=== PATIENT | male | born 1985 | race African-American/Black ===

== ENCOUNTER 2020-04-25 13:39 | Emergency (ER) | payer MEDICAID, SELFPAY ==
[2020-04-25] MEDS ORDERED: Ketorolac Tromethamine 30 MG/ML VIAL ONE (14:30)
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
== END 2020-04-25 14:48 | disposition home or self-care (01) ==
LOC: ERS 13:39
DX: S39.012A Strain of muscle, fascia and tendon of lower back, initial encounter (principal); V89.2XXA Person injured in unspecified motor-vehicle accident, traffic, initial encounter
CPT/HCPCS: 96372; 99283; J1885

== ENCOUNTER 2020-04-28 12:51 | Emergency (ER) | payer SELFPAY | END 2020-04-28 14:07 | disposition home or self-care (01) | LOC: ERS 12:51 | DX: S39.012A Strain of muscle, fascia and tendon of lower back, initial encounter (principal); J45.909 Unspecified asthma, uncomplicated; X50.0XXA Overexertion from strenuous movement or load, initial encounter; V49.40XD Driver injured in collision with unspecified motor vehicles in traffic accident, subsequent encounter; Y99.0 Civilian activity done for income or pay | CPT/HCPCS: 72100; 99283 ==

== ENCOUNTER 2020-05-04 14:06 | Emergency (ER) | payer SELFPAY | END 2020-05-04 20:33 | disposition left against medical advice (07) | LOC: ERS 14:06 | DX: Z53.21 Procedure and treatment not carried out due to patient leaving prior to being seen by health care provider (principal) ==

== ENCOUNTER 2020-05-31 09:14 | Emergency (ER) | payer OTHER, SELFPAY ==
[2020-06-01 15:24] LABS: SARS-CoV-2 MS2 Positive; SARS-CoV-2 N Gene Negative; SARS-CoV-2 S Gene Negative; SARS-CoV-2 orf1ab Negative
== END 2020-05-31 09:55 | disposition home or self-care (01) ==
LOC: ERS 09:14
DX: Z20.828 Contact with and (suspected) exposure to other viral communicable diseases (principal)
CPT/HCPCS: 87635; 99283; U0003

== ENCOUNTER 2020-09-05 19:25 | Inpatient (IN) | payer OTHER, SELFPAY ==
[~2020-09-05 19:25] MED LIST: Iopamidol 370 76% 100 ML VIAL ONE
[2020-09-05] MEDS ORDERED: Ketorolac Tromethamine 30 MG/ML VIAL ONE (20:17)
--- NOTE | 2020-09-05 21:06 | ULT ---
Right lower extremity venous Doppler ultrasound 09/05/2020 COMPARISON: None HISTORY: Pain, swelling, assess for DVT TECHNIQUE: Multiplanar grayscale sonographic imaging venous structures right lower extremity obtained with color flow and spectral analysis FINDINGS: The right common femoral vein is expanded and filled with heterogeneous thrombus. There is extensive DVT within the femoral vein and the popliteal vein as well. Proximal aspect of the common femoral vein clot approaches the junction with the right iliac vein. IMPRESSION: Extensive deep venous thrombosis of the right lower extremity including the common femora l vein, femoral vein, and popliteal vein. Dr. Pacheco made aware via phone by Dr. Simeon at 9:03 PM
--- NOTE | 2020-09-05 22:18 | CT ---
CT angiogram chest: 09/05/2020 HISTORY: Right lower extremity DVT, evaluate for pulmonary embolism TECHNIQUE: Axial CT imaging at 2.5 mm intervals through the chest with IV contrast using CT angiogram protocol with coronal and oblique sagittal 3-D reformatted imaging FINDINGS: Partially imaged upper abdomen appears grossly unremarkable. No pleural, pericardial, or me diastinal fluid. No chest lymphadenopathy. There is a filling defect within the pulmonary artery supplying the left lower lobe, best seen on axi al image 53, extending into 3 segmental branches of the left lower lobe, best seen on axial image 58. There is a filling defect within the distal aspect of the lobar pulmonary arteries supplying the right upper lobe with extension into anterior and posterior right upper lobe segmental branches. There is a segmental pulmonary arterial embolism involving the right lower lobe on axial image 67. There is no pneumothorax seen. Mild linear density in the inferior posterior aspect of both lower lobe suggests atelectasis. No acut e osseous abnormality. IMPRESSION: Acute pulmonary arterial embolism bilaterally as detailed above area results called to Dr Bart Pacheco at 10:12 PM 09/05/2020
[2020-09-05 22:59] LABS: #Basophils 0.1 thou/uL (0.0-0.2); #Lymphocytes 1.3 thou/uL (1.20-3.40); #Monocytes 1.4 thou/uL (0.11-0.59); #Neutrophils 9.5 thou/uL (1.40-6.50); %Basophils 0.4 % (0.0-1.0); %Eosinophils 0.4 % (0.0-10.0); %Lymphocytes 10.6 % (21.0-51.0); %Monocytes 11.1 % (0.0-10.0); %Neutrophils 77.5 % (42.0-75.0); Hemoglobin 11.9 g/dL (14.0-18.0); Mean Corpuscular HGB CONC 32.4 g/dL (32.0-36.0); Mean Corpuscular Hemoglobin 23.7 pg (27.0-31.0); Mean Corpuscular Volume 73.2 fL (78.0-98.0); Mean Platelet Volume 11.5 fL (7.4-10.4); Platelet Count 166 thou/uL (130-400); RBC Distribution Width 12.1 % (11.5-14.5); Red Blood Cell (RBC) Count 5.01 mill/uL (4.70-6.10); White Blood Cell (WBC) Count 12.2 thou/uL (4.8-10.8)
[2020-09-05] MEDS ORDERED: Enoxaparin Sodium 100 MG/ML SYRINGE ONE (23:17)
[2020-09-05 23:24] LABS: ALT (SGPT) 11 U/L (8-55); AST (SGOT) 11 U/L (5-34); Albumin 4.1 g/dL (3.5-5.0); Alkaline Phosphatase 87 U/L (40-110); Anion Gap 15 mmol/L (10-20); BUN (Urea Nitrogen) 8 mg/dL (8.9-20.6); Bilirubin, Total 0.8 mg/dL (0.2-1.2); Calc. Creatinine Clearance 0 mL/min (70-130); Carbon Dioxide 24 mmol/L (22-29); Chloride 100 mmol/L (98-107); Estimated GFR-MDRD Greater than 90; Globulin 3.6 g/dL (2.4-3.5); Glucose 103 mg/dL (70-105); Potassium 3.8 mmol/L (3.5-5.1); Protein, Total 7.7 g/dL (6.0-8.3); Sodium 135 mmol/L (136-145)
[2020-09-05] MEDS ORDERED: Enoxaparin Sodium 60 MG/0.6 ML SYRINGE ONE (23:28)
--- NOTE | 2020-09-05 23:54 | PDOC.HHP ---
Hospitalist HPI - History of Present Illness Right leg pain and swelling History of Present Illness: PCP: None The patient is a 35-year-old male with no significant past medical history that presents to the emergency department for the above complaint. The patient reports over the past week developing swelling and pain to his right lower extremity. He reports that he first noticed swelling to his right upper thigh. As the week progressed, the swelling extended down his right thigh and lower leg. He reports increasing pain and warmth associated with the swelling. He reports that the affected leg became so painful that he was having trouble walking this weekend. He denies any history of DVT or PE. He has no known trauma or recent surgery. He has no family history of any clotting disorders. He denies any chest pain, heart palpitations, shortness of breath or hemoptysis. He has no history of cancer. 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 He denies any recent illness, fever/chills. He has no other complaints at this time. ED Course: VITAL SIGNS SunSep 05, 2020 19:26 BECKY Stevens Jennifer BP: 139/97, Pulse: 120, Resp: 20, Temp: 98.9 (Oral), Pain: 10, O2 sat: 100 on (Room Air), Time: 09/05/2020 19:26. VITAL SIGNS SunSep 05, 2020 19:31 BECKY Scott Rebecca BP: 137/102, Pulse: 110, Resp: 18, Pain: 10, O2 sat: 100, Time: 09/05/2020 19:31. VITAL SIGNS SunSep 05, 2020 19:35 BECKY Scott Rebecca Pulse: 102, Time: 09/05/2020 19:35. VITAL SIGNS SunSep 05, 2020 21:04 BECKY Scott Rebecca BP: 133/95, Pulse: 92, Resp: 18, Pain: 7, O2 sat: 100 on (Room Air), Time: 09/05/2020 21:04. VITAL SIGNS SunSep 05, 2020 23:35 BECKY Irizarry Miranda BP: 128/85, Pulse: 84, Resp: 16, Temp: 98.4 (Oral), Pain: 0, O2 sat: 100 on (Room Air), Time: 09/05/2020 23:35. Medication administration: enoxaparin 1 mg/kg Subcutaneous Given 23:32 09/05/2020 ketorolac intramuscular 30 mg Intramuscular Given 20:10 09/05/2020 Hospitalist ROS - Review of Systems Constitutional: denies: fever, chills Eyes: denies: vision change Respiratory: denies: cough, shortness of breath, hemoptysis, pleuritic pain Cardiovascular: denies: chest pain, palpitations, light headedness Gastrointestinal: denies: nausea, vomiting, abdominal pain, diarrhea, melena, hematochezia Genitourinary: denies: dysuria, hematuria Skin: denies: bruising Neurological: denies: weakness, incoordination, change in speech All other systems reviewed; all pertinent +/- noted in HPI/Subj - Medication Medications: NONE Allergies: NKDA Hospitalist History - Past Medical History Source: patient Cardiac: reports: no pertinent history Pulmonary: reports: no pertinent history [employer]: reports: no pertinent history - Past Surgical History Past Surgical History: reports: no pertinent history - Family History Family History: reports: no pertinent history Other Family History: Noncontributory to this case - Social History Smoking Status: Never smoker Alcohol: reports: None Drugs: reports: none Occupation: class [employer] Activity level: independent ambulation - Exam General Appearance: NAD, awake alert. negative: ill appearing Eye: PERRL, anicteric sclera ENT: normocephalic atraumatic Neck: supple, symmetric, no JVD Heart: RRR, no murmur, no gallops, no rubs, normal peripheral pulses Respiratory: CTAB, no wheezes, no rales, no ronchi, normal chest expansion, no tachypnea Gastrointestinal: soft, non-tender, normal bowel sounds, no bruit, no guarding, no rigidity Extremities: no cyanosis Extremities - other findings: RLE swelling, warm to palpation Neurological: cranial nerve grossly intact, no weakness, no focal deficits Musculoskeletal: normal tone, normal strength Psychiatric: normal affect, A&O x 3 Hospitalist Results - Labs Result Diagrams: 09/05/20 22:46 09/05/20 22:46 Lab results: WBC 12.2 thou/uL (4.8-10.8) H 09/05/20 22:46 Hgb 11.9 g/dL (14.0-18.0) L 09/05/20 22:46 Hct 36.7 % (42.0-52.0) L 09/05/20 22:46 MCV 73.2 fL (78.0-98.0) L 09/05/20 22:46 Plt Count 166 thou/uL (130-400) 09/05/20 22:46 Neutrophils % 77.5 % (42.0-75.0) H 09/05/20 22:46 Sodium 135 mmol/L (136-145) L 09/05/20 22:46 Potassium 3.8 mmol/L (3.5-5.1) 09/05/20 22:46 Chloride 100 mmol/L (98-107) 09/05/20 22:46 Carbon Dioxide 24 mmol/L (22-29) 09/05/20 22:46 BUN 8 mg/dL (8.9-20.6) L 09/05/20 22:46 Creatinine 0.98 mg/dL (0.7-1.3) 09/05/20 22:46 Glucose 103 mg/dL (70-105) 09/05/20 22:46 Calcium 9.0 mg/dL (7.8-10.44) 09/05/20 22:46 Total Bilirubin 0.8 mg/dL (0.2-1.2) 09/05/20 22:46 AST 11 U/L (5-34) 09/05/20 22:46 ALT 11 U/L (8-55) 09/05/20 22:46 Alkaline Phosphatase 87 U/L (40-110) 09/05/20 22:46 Troponin I Less than 0.010 ng/mL (< 0.028) 09/05/20 22:46 B-Natriuretic Peptide Less than 10.0 pg/mL (0-100) 09/05/20 22:46 Serum Total Protein 7.7 g/dL (6.0-8.3) 09/05/20 22:46 Albumin 4.1 g/dL (3.5-5.0) 09/05/20 22:46 - EKG Interpretation EKG: Normal sinus rhythm, LVH, T wave abnormalities, no ST elevations. - Radiology Interpretation CT scan - chest Status: report reviewed by me Additional Comment: IMPRESSION: Acute pulmonary arterial embolism bilaterally as detailed above area results called to Dr. Pacheco at 10:12 PM 09/05/2020 US - venous Status: report reviewed by me Additional Comment: DVT to the common femoral vein, femoral vein, and popliteal vein of the right lower extremity. Hospitalist H&P A/P - Problem (1) Deep vein thrombosis (DVT) of right lower extremity Code(s): I82.401 - ACUTE EMBOLISM AND THOMBOS UNSP DEEP VEINS OF R LOW EXTREM Status: Acute (2) Bilateral pulmonary embolism Code(s): I26.99 - OTHER PULMONARY EMBOLISM WITHOUT ACUTE COR PULMONALE Status: Acute (3) Obese Code(s): E66.9 - OBESITY, UNSPECIFIED Status: Acute - Plan Plan: 35/M catering truck driver presents for right lower extremity swelling. Admit telemetry floor, observation status. Expected length of stay less than 2 midnights. Presented tachycardic, HR 120, NL BP, RR, SPO2. EKG normal sinus rhythm, LVH, T wave abnormalities. Venous Doppler shows DVT common femoral vein, femoral vein, popliteal vein. CTA chest shows bilateral pulmonary emboli. Troponin negative, BNP less than 10. #DVT, right lower extremity Continue Lovenox 1 mg/kg twice daily. check PT/INR, trend troponins. No SCDs or MANOJ hose. Bedrest with bathroom privileges. Gentle IV fluids Morphine as needed. Oxygen as needed. Obtain echocardiogram. #Bilateral pulmonary emboli Likely related to problem 1. No SCDs for DVT prophylaxis. No GI prophylaxis. Full code. Discussed case with Dr. Hull.
[2020-09-06] MEDS ORDERED: HYDROcodone/Acetaminophen 5/325 mg Tablet PO PRN (00:27)
[2020-09-06] MEDS ORDERED: Acetaminophen 325 MG TAB PO PRN (00:27)
[2020-09-06] MEDS ORDERED: Ondansetron ODT 4 MG TAB PO PRN (00:27)
[2020-09-06] MEDS ORDERED: Ondansetron PF 4 MG/2 ML Vial IVP PRN (00:27)
[2020-09-06] MEDS ORDERED: Morphine 2 MG/ML VIAL SLOW IVP PRN (00:33)
[2020-09-06 01:25] VITALS: BMI 44.7
[2020-09-06] MEDS: Sodium Chloride 0.9% 1,000 ML IV SCH ×3 (01:25→20:42)
[2020-09-06 01:38] LABS: INR-International Normal Ratio 1.1; PTT 40.3 sec (22.9-36.1); Prothrombin Time 14.5 sec (12.0-14.7)
[2020-09-06 02:08] LABS: Troponin I Less than 0.010 ng/mL (< 0.028)
[2020-09-06 05:14] LABS: Anion Gap 16 mmol/L (10-20); BUN (Urea Nitrogen) 9 mg/dL (8.9-20.6); Calc. Creatinine Clearance 256 mL/min (70-130); Calcium 9.2 mg/dL (7.8-10.44); Carbon Dioxide 22 mmol/L (22-29); Cardiac Risk 5.2 (Less than 4.5); Chloride 100 mmol/L (98-107); Cholesterol 188 mg/dl (< 200 Desired); Estimated GFR-MDRD Greater than 90; Glucose 97 mg/dL (70-105); HDL Cholesterol 36 mg/dL (>60 Neg Risk); LDL Cholesterol, Calculated 136 mg/dL; Potassium 3.8 mmol/L (3.5-5.1); Sodium 134 mmol/L (136-145); Triglycerides 78 mg/dL (Less than 150)
[2020-09-06 05:24] LABS: Troponin I Less than 0.010 ng/mL (< 0.028)
[2020-09-06 05:31] LABS: Band 4 % (5-11); Hemoglobin 11.3 g/dL (14.0-18.0); Hypochromia SLIGHT = 6-15 cells (100X) (0-5/hpf); Lymphocytes 12 % (21-51); MDiff Complete? YES; Mean Corpuscular HGB CONC 30.6 g/dL (32.0-36.0); Mean Corpuscular Hemoglobin 22.8 pg (27.0-31.0); Mean Corpuscular Volume 74.4 fL (78.0-98.0); Mean Platelet Volume 11.8 fL (7.4-10.4); Monocytes 11 % (0-10); Neutrophil 73 % (42-75); Platelet Count 165 thou/uL (130-400); Platelet Morphology Comment Appears Adequate; RBC Distribution Width 12.1 % (11.5-14.5); Red Blood Cell (RBC) Count 4.97 mill/uL (4.70-6.10); White Blood Cell (WBC) Count 11.6 thou/uL (4.8-10.8)
[2020-09-06 11:06] LABS: SARS-CoV-2 MS2 Positive; SARS-CoV-2 N Gene Negative; SARS-CoV-2 S Gene Negative; SARS-CoV-2 by NAA Not Detected (NotDetected); SARS-CoV-2 orf1ab Negative
[2020-09-06] MEDS: Enoxaparin Sodium 80 MG/0.8 ML SYRINGE SC SCH ×2 (11:56→23:49)
--- NOTE | 2020-09-06 19:50 | PDOC.HOSPP ---
- Subjective Encounter Date: 09/06/20 Encounter Time: 19:40 Subjective: f/u for bilat acute PE's and RLE DVT on Lovenox currently. c/o pain in RLE, no SOB currently. - Objective Vital Signs & Weight: Vital Signs (12 hours) Temp Pulse Resp BP Pulse Ox 09/06/20 19:34 99.6 F 85 20 144/91 H 99 09/06/20 15:29 99.6 F 86 18 135/79 98 09/06/20 11:01 99.2 F 66 17 140/78 99 09/06/20 08:57 98 09/06/20 07:44 98.6 F 89 17 139/81 98 Weight Weight 330 lb I&O: 09/05/20 09/06/20 09/07/20 06:59 06:59 06:59 Intake Total 100 Output Total 0 Balance 100 Result Diagrams: 09/06/20 04:41 09/06/20 04:41 Radiology Reviewed by me: Yes (Echo - EF 60-65%, no thrombus) EKG Reviewed by me: Yes (Tele - SR) Hospitalist ROS - Medication Medications: Active Medications Generic Name Dose Route Start Last Admin Trade Name Freq PRN Reason Stop Dose Admin Acetaminophen 650 mg 09/06/20 00:27 09/06/20 14:56 Acetaminophen 325 Mg Tab PO 650 mg Q4H PRN Administration Headache/Fever/Mild Pain (1-3) Enoxaparin Sodium 150 mg 09/06/20 12:00 09/06/20 11:56 Enoxaparin Sodium 80 Mg/0.8 Ml Syringe SC 150 mg Q12H GLADIS Administration Sodium Chloride 1,000 mls @ 100 mls/hr 09/06/20 00:30 09/06/20 10:59 Normal Saline 0.9% IV 1,000 mls .Q10H GLADIS Administration - Exam General Appearance: NAD, awake alert Eye: PERRL, anicteric sclera ENT: normocephalic atraumatic, no oropharyngeal lesions Neck: supple, symmetric, no JVD, no thyromegaly, no lymphadenopathy Heart: RRR, no murmur, no gallops, no rubs, normal peripheral pulses Heart - other findings: S1, S2 Gastrointestinal: soft, non-tender, non-distended, normal bowel sounds, no pal pable masses Gastrointestinal - other findings: obese Extremities: 1+ LE edema Extremities - other findings: RLE edema Skin: normal turgor, no lesions Neurological: cranial nerve grossly intact, no new deficit Musculoskeletal: normal tone, normal strength, no muscle wasting Psychiatric: normal affect, A&O x 3 Hosp A/P (1) Bilateral pulmonary embolism Code(s): I26.99 - OTHER PULMONARY EMBOLISM WITHOUT ACUTE COR PULMONALE Status: Acute Plan: Continue Lovenox, consider OAC in another 24h (2) Deep vein thrombosis (DVT) of right lower extremity Code(s): I82.401 - ACUTE EMBOLISM AND THOMBOS UNSP DEEP VEINS OF R LOW EXTREM Status: Acute Plan: RLE involvement, continue Lovenox as outlined in #1 (3) Microcytic anemia Code(s): D50.9 - IRON DEFICIENCY ANEMIA, UNSPECIFIED Status: Chronic Plan: check Iron studies, Ferritin, Retic count, stool guaiac (4) Obese Code(s): E66.9 - OBESITY, UNSPECIFIED Status: Chronic - Plan rn social work Continue Lovenox with transition to OAC in 24h Pain control with Tramadol OOB/ambulate AM lab: Iron, Ferritin, Retic count, Stool guaiac, CBC
[2020-09-06] MEDS ORDERED: traMADol HCl 50 MG TAB PO PRN (20:26)
[2020-09-06] MEDS ORDERED: traMADol HCl 50 MG TAB PO SCH (20:30)
[2020-09-06] MEDS ORDERED: FLU VACC QS2020-21(6MOS UP)/PF 60 MCG/0.5 ML SYRINGE IM ONE (21:00)
[2020-09-07] MEDS: Sodium Chloride 0.9% 1,000 ML IV SCH (03:45)
[2020-09-07 04:56] LABS: Reticulocyte Count 1.1 % (0.5-1.5)
[2020-09-07 05:25] LABS: Band 2 % (5-11); Eosinophils 3 % (0-10); Hemoglobin 10.8 g/dL (14.0-18.0); Lymphocytes 23 % (21-51); MDiff Complete? YES; Mean Corpuscular HGB CONC 30.7 g/dL (32.0-36.0); Mean Corpuscular Hemoglobin 22.7 pg (27.0-31.0); Mean Corpuscular Volume 73.9 fL (78.0-98.0); Mean Platelet Volume 11.1 fL (7.4-10.4); Monocytes 9 % (0-10); Neutrophil 63 % (42-75); Platelet Count 196 thou/uL (130-400); Platelet Morphology Comment Appears Adequate; RBC Distribution Width 12.1 % (11.5-14.5); Red Blood Cell (RBC) Count 4.77 mill/uL (4.70-6.10); White Blood Cell (WBC) Count 11.1 thou/uL (4.8-10.8)
--- NOTE | 2020-09-07 11:07 | PDOC.HOSPP ---
- Subjective Encounter Date: 09/07/20 Encounter Time: 10:40 Subjective: f/u for bilat PE's and RLE DVT on current Lovenox. States feeling ok except for RLE pain. No SOB/cough. - Objective Vital Signs & Weight: Vital Signs (12 hours) Temp Pulse Resp BP Pulse Ox 09/07/20 07:57 99.5 F 77 19 138/74 97 09/07/20 07:20 98 09/07/20 03:44 99.7 F H 72 16 137/79 98 Weight Weight 330 lb I&O: 09/06/20 09/07/20 09/08/20 06:59 06:59 06:59 Intake Total 100 1200 Output Total 0 700 Balance 100 500 Result Diagrams: 09/07/20 04:02 09/06/20 04:41 Additional Labs: Laboratory Tests 09/06/20 09/06/20 09/06/20 01:22 04:41 04:41 WBC 11.6 H Hgb 11.3 L Magnesium 2.2 Iron Ferritin Triglycerides 78 Cholesterol 188 LDL Cholesterol, Calc 136 HDL Cholesterol 36 09/07/20 09/07/20 04:02 04:03 WBC Hgb Magnesium Iron 17 L Ferritin 452.22 H Triglycerides Cholesterol LDL Cholesterol, Calc HDL Cholesterol EKG Reviewed by me: Yes (Tele - SR) Hospitalist ROS - Medication Medications: Active Medications Generic Name Dose Route Start Last Admin Trade Name Freq PRN Reason Stop Dose Admin Acetaminophen 650 mg 09/06/20 00:27 09/06/20 14:56 Acetaminophen 325 Mg Tab PO 650 mg Q4H PRN Administration Headache/Fever/Mild Pain (1-3) Enoxaparin Sodium 150 mg 09/06/20 12:00 09/06/20 23:49 Enoxaparin Sodium 80 Mg/0.8 Ml Syringe SC 150 mg Q12H GLADIS Administration Sodium Chloride 1,000 mls @ 100 mls/hr 09/06/20 00:30 09/07/20 03:45 Normal Saline 0.9% IV 1,000 mls .Q10H GLADIS Administration Morphine Sulfate 2 mg 09/06/20 00:33 09/06/20 20:43 Morphine 2 Mg/Ml Vial SLOW IVP 2 mg Q4H PRN Administration Moderate to Severe Pain (6-10) - Exam General Appearance: NAD, awake alert Eye: PERRL, anicteric sclera ENT: normocephalic atraumatic, no oropharyngeal lesions Neck: supple, symmetric, no JVD, no thyromegaly, no lymphadenopathy Heart: RRR, no murmur, no gallops, no rubs, normal peripheral pulses Heart - other findings: S1, S2 Respiratory: CTAB, no wheezes, no rales, no ronchi, normal chest expansion, no tachypnea Gastrointestinal: soft, non-tender, non-distended, normal bowel sounds, no palpable masses Gastrointestinal - other findings: obese Extremities: no cyanosis, 2+ LE edema Extremities - other findings: RLE edema Skin: normal turgor Neurological: cranial nerve grossly intact, no new deficit Musculoskeletal: normal tone, normal strength, no muscle wasting Psychiatric: normal affect, A&O x 3 Hosp A/P (1) Bilateral pulmonary embolism Code(s): I26.99 - OTHER PULMONARY EMBOLISM WITHOUT ACUTE COR PULMONALE Status: Acute Plan: Continue Lovenox another 24h then convert to Eliquis (2) Deep vein thrombosis (DVT) of right lower extremity Code(s): I82.401 - ACUTE EMBOLISM AND THOMBOS UNSP DEEP VEINS OF R LOW EXTREM Status: Acute Plan: See above #1 (3) Microcytic anemia Code(s): D50.9 - IRON DEFICIENCY ANEMIA, UNSPECIFIED Status: Chronic Plan: Start FeSO4 325mg BID (4) Obese Code(s): E66.9 - OBESITY, UNSPECIFIED Status: Chronic - Plan social scientist, out of bed/ambulate Continue Lovenox with transition to OAC in 24h Pain control with Tramadol OOB/ambulate Start FeSO4 325mg BID Start Eliquis 09/08/20 Stool guaiac pending Saline lock IVF's Likely home in 24h
[2020-09-07] MEDS: Enoxaparin Sodium 80 MG/0.8 ML SYRINGE SC SCH (12:36)
[2020-09-07] MEDS: Ferrous Sulfate 325 MG TAB PO SCH (16:54)
[2020-09-08] MEDS: Enoxaparin Sodium 80 MG/0.8 ML SYRINGE SC SCH (00:53)
[2020-09-08] MEDS: Ferrous Sulfate 325 MG TAB PO SCH (08:29)
[2020-09-08] MEDS ORDERED: Apixaban 5 MG TAB PO SCH (09:15)
--- NOTE | 2020-09-08 10:26 | DIS ---
DATE OF ADMISSION: 09/06/2020 DATE OF DISCHARGE: 09/08/2020 DISCHARGE DIAGNOSES: 1. Acute bilateral pulmonary emboli. 2. Deep venous thrombosis of the right lower extremity. 3. Microcytic anemia with iron deficiency component. 4. Obesity. CONSULTATIONS: None. PERTINENT LABORATORY AND X-RAY FINDINGS: Sodium ranged between 134 to 135, magnesium level 2.2, serum iron level 17, ferritin 452, total cholesterol 188, triglyceride 78, HDL 36, LDL 136. TSH 0.98. Troponin I negative x3. BNP less than 10. CBC showed a white blood cell count ranging between 11.1 to 12.2, hemoglobin ranged between 10.8 to 11.9, MCV 74. COVID-19 PCR not detected 09/05/2020. Right lower extremity venous Doppler study dated 09/05/2020, positive for deep venous thrombosis of the right lower extremity including common femoral, femoral and popliteal vein. CT angiogram of the chest dated 09/05/2020, showed acute pulmonary embolus bilaterally. 2D transthoracic echocardiogram dated 09/06/2020 showed ejection fraction of 60% to 65%. Structurally normal cardiac exam. HOSPITAL COURSE: The patient was admitted after presenting with right lower extremity pain and swelling. The patient underwent evaluation including right lower extremity venous Doppler study showing extensive venous thrombosis of the right lower extremity. The patient also underwent CT angiogram of the chest showing bilateral pulmonary emboli. The patient was initially placed on subcutaneous Lovenox and treated for approximately 72 hours with overall improvement in right lower extremity pain and swelling. The patient will transition from Lovenox to Eliquis to continue six months of therapy. The patient was noted with mild anemia with iron deficiency component and initiated on ferrous sulfate 325 mg b.i.d. Overall, the patient did remain clinically stable during the hospital course, maintaining O2 saturations in the mid to upper 90% range on room air. I have examined the patient at the time of discharge and discussed followup instructions. The patient verbalizes understanding and agreement, ready for discharge on 09/08/2020. DISCHARGE MEDICATIONS: 1. Eliquis 10 mg p.o. b.i.d. x7 days, followed by 5 mg p.o. b.i.d. x6 months. 2. Ferrous sulfate 325 mg p.o. b.i.d. 3. Tramadol 50 mg p.o. q.6 hours p.r.n. pain. FOLLOWUP: The patient will follow up with his primary care provider within 7 days of discharge. CONDITION ON DISCHARGE: Stable. ACTIVITY: Ad-maulik. DIET: Heart healthy. CODE STATUS: Full. DISPOSITION: To home, 09/08/2020. TIME SPENT: Total time preparing and coordinating discharge, 33 minutes. Job ID: [id number]
[2020-09-08 11:17] VITALS: BP 147/79; TEMP 99.2
== END 2020-09-08 11:25 | disposition home or self-care (01) | DRG 299 ==
LOC: ERS 19:25 → 2NO 23:55 → INTOOBSV 23:55 → OBSVTOIN 09-06 15:05
PROVIDERS: ADMIT Internal Medicine; ATTEND Internal Medicine
DX: I82.411 Acute embolism and thrombosis of right femoral vein (principal); I26.99 Other pulmonary embolism without acute cor pulmonale; Z68.41 Body mass index [BMI] 40.0-44.9, adult; I82.431 Acute embolism and thrombosis of right popliteal vein; Z20.828 Contact with and (suspected) exposure to other viral communicable diseases; E66.9 Obesity, unspecified; D50.9 Iron deficiency anemia, unspecified
CPT/HCPCS: 36415; 71275; 80048; 80053; 80061; 82728; 83540; 83735; 83880; 84443; 84484; 85025; 85046; 85610; 85730; 87635; 93005; 93306; 94760; 96372; G0378; J1650; J1885; J2270; Q9967; U0003